=== PATIENT | female | born 1965 | race Caucasian/White ===

== ENCOUNTER → 2019-10-12 | Outpatient (CLI) | payer OTHER | LOC: MC.RAD 09:28 | DX: Z12.31 Encounter for screening mammogram for malignant neoplasm of breast (principal) ==

== ENCOUNTER → 2019-11-10 | Outpatient (CLI) | payer OTHER ==
[~2019-11-10] VITALS: Ht 165.1 cm; Wt 160.1 kg
[~2019-11-10] MED LIST: ASPIRIN E.C. 8181 MG PO; CRESTOR20 MG PO; FINACEA15% TP; ZESTRIL 20MG TA20 MG PO
[2019-11-10 09:26] VITALS: BP 130/64; PULSE 96
== END ==
LOC: LIGHT 09:06
DX: Z68.43 Body mass index [BMI] 50.0-59.9, adult (principal); E88.81 Metabolic syndrome and other insulin resistance; R73.01 Impaired fasting glucose; I10 Essential (primary) hypertension
CPT/HCPCS: G0463

== ENCOUNTER → 2020-03-15 | Outpatient (CLI) | payer OTHER | LOC: BHSO 14:58 → LIGHT 14:58 | DX: E66.8 Other obesity (principal) ==

== ENCOUNTER 2021-09-19 14:15 | Outpatient (RCR) | payer OTHER | END 2021-09-28 | disposition home or self-care (01) | LOC: WSPT | DX: M17.0 Bilateral primary osteoarthritis of knee (principal) ==

== ENCOUNTER 2021-12-06 09:01 | Inpatient (IN) | payer OTHER ==
[~2021-12-06] VITALS: Ht 167.6 cm; Wt 153.6 kg
[2022-01-02] VITALS (14 sets, daily range): BP systolic 140–168; BP diastolic 66–90; PULSE 92–113; TEMP 97.4–98.8
[2022-01-02] MEDS ORDERED: ASPIRIN 32325 MG/TAB PO (05:54)
[2022-01-02] MEDS ORDERED: BIOTIN5000 MCG PO (05:55)
[2022-01-02] MEDS ORDERED: COMPLETE MULTI1 TAB PO (05:56)
--- NOTE | 2022-01-02 06:30 | NUR ---
The patient ambulated back to [facility] independently using a steady gait and appeared to tolerate the activity well. Vital signs obtained. Consent signed. 18G IV started in right hand with one stick, LR infusing without difficulty. Assessment completed. Warm blanket provided. Daughter brought back to be at her bedside. Call light is within reach. The patient denies any further needs.
--- NOTE | 2022-01-02 12:15 | NUR ---
Patient received post op. She is slightly drowsy. Some pain and nausea. Corporate Travel Manager set up and reviewed usage with patient. Repositioned pain in bed for comfort. TIM drain to compression. Lap site with bandaids intact. Hui to DD. [facility] supportive [facility]. Will monitor.
--- NOTE | 2022-01-02 16:34 | NUR ---
Patient up and ambulated halls, one assist with nurse & daughter at her side. She did very well. Steady on her feet. Slight increase in nausea with movement. Denies the need for medication. Did check with patient able to have gum or a cough drop. Otherwise she remains NPO. Collections Officer dilaudid manages pain with minimal use. Scds ble. Ivf per orders. Nicholas drain to Compression. Lap site with bandaids. Will monitor.
--- NOTE | 2022-01-02 19:16 | NUR ---
RECEIVED CHANGE OF SHIFT REPORT FROM DAY SHIFT RN.
--- NOTE | 2022-01-02 19:24 | NUR ---
Patient resting in bed. Her supportive daughter remains at bedside. Patient pain manged with dialudid Foreign Student Adviser. Hui to DD with adeuqate output. Nicholas drain remains to compression. Report to night nurse. They deny questions and concerns
[2022-01-03] VITALS (10 sets, daily range): BP systolic 141–156; BP diastolic 68–84; PULSE 84–108; TEMP 97.6–98.8
[2022-01-03 05:59] LABS: BASO % 0.2 % (0.0-2.0); EOS % 0.3 % (0.0-4.0); GRAN # 8.4 K/mm3 (1.4-6.5); GRAN % 71.9 % (42.2-75.2); HEMOGLOBIN 11.7 g/dl (12.5-16.0); LYMPH # 2.1 K/mm3 (1.2-3.4); LYMPH % 17.7 % (20.0-51.0); MEAN CELL VOLUME 87 fl (80.0-100.0); MEAN CORPUSCULAR HEMOGLOBIN 29 pg (27-31); MEAN CORPUSCULAR HGB CONC 33 g/dl (33.0-37.0); MEAN PLATELET VOLUME 9.5 fl (7.4-10.4); MONO # 1.1 K/mm3 (0.1-0.6); MONO % 9.4 % (1.7-9.3); PLATELET COUNT 311 K/mm3 (130-400); RED BLOOD COUNT 4.07 M/mm3 (4.10-5.30); REDCELL DISTRIBUTION WIDTH-CV 13.4 % (11.5-14.5)
[2022-01-03 06:05] LABS: HEMATOCRIT 35.5 % (37.0-47.0)
[2022-01-03 06:18] LABS: ALBUMIN 3.5 gm/dL (3.5-5.0); BILIRUBIN,TOTAL 0.4 mg/dL (0.2-1.2); CALCIUM 8.4 mg/dL (8.4-10.2); CREATININE, serum 0.72 mg/dL (0.57-1.11); POTASSIUM 4.3 mmol/L (3.5-4.5); TOTAL PROTEIN 6.8 gm/dL (6.2-8.1)
--- NOTE | 2022-01-03 07:13 | NUR ---
CHANGE OF SHIFT REPORT GIVEN TO DAY SHIFT RNEMBER
--- NOTE | 2022-01-03 09:24 | NUR ---
PT IS BACK TO ROOM FROM [facility], STATES THAT IT WENT WELL. METAL FURNACE OPERATOR IN PLACE ET IVF INFUSING. DAUGHTER IS @ BEDSIDE.
--- NOTE | 2022-01-03 09:31 | NUR ---
Initial visit attempt; Patient not in room. Agency Development Manager left card for patient letting her know of the availability of spiritual care at our hospital and offering God's blessings.
--- NOTE | 2022-01-03 10:16 | NUR ---
Lead Java Software Engineer met with patient to discuss discharge planning. Patient's daughter is at bedside. Patient lives in [place] with her , Slava (ph#[phone]) and sees Dr. Power Steward for primary care. Patient obtains medications from [facility] in [employer] with no difficulties and does not use any DME. Patient is independent with ADLS and plans to return home at time of discharge. Patient does not have Advance Directives and is not interested in completing DPOA-HC form at this time. Discharge Plan: Home
--- NOTE | 2022-01-03 12:36 | NUR ---
PT IS WALKING IN HALLS, REPORTS BELCHING FREQUENTLY ET SOME NAUSEA. BOATBUILDER WOOD IN PLACE, IVF INFUSING. TIM DRAIN ON BULB SUCTION.
--- NOTE | 2022-01-03 15:18 | NUR ---
PT WAS STARTED ON CLEAR LIQUIDS @ 1015, HAS TOLERATED WELL. PT HAS MILD NAUSEA THAT RESOLVES WITH ZOFRAN. IVF DECREASED FROM 125 TO 75 ML/HR.
[2022-01-03] MEDS ORDERED: ZOFRAN 4MG T4 MG/TAB PO (17:09)
[2022-01-03] MEDS ORDERED: PRILOSEC 20MG20 MG PO (17:10)
[2022-01-03] MEDS ORDERED: NORCO 325 MG-51 TAB PO (17:10)
--- NOTE | 2022-01-03 18:23 | NUR ---
PT SITTING IN RECLINER CHAIR, FAMILY IS @ BEDSIDE. PT HAS BEEN UP TO AMBULATE IN [place] ET ROOM SEVERAL TIMES TODAY. PT STATES THAT SHE HAS MINIMAL PAIN ET OCCASIONAL NAUSEA. MESSINA CATHETER ET SLIPCOVER CUTTER HAS DCED. PT HAS NOT YET VOIDED, HAS BEEN INSTRUCTED TO LET STAFF KNOW WHEN SHE DOES. IVF INFUSING. CALL LIGHT WITHIN REACH.
--- NOTE | 2022-01-03 19:00 | NUR ---
RECEIVED CHANGE OF SHIFT REPORT FROM DAY SHIFT RN.
--- NOTE | 2022-01-03 20:41 | NUR ---
C/O NAUSEA, MED GIVEN, SEE MAR. DENIES ANY OTHER NEEDS AT THIS TIME.
--- NOTE | 2022-01-03 23:30 | NUR ---
PATIENT REPORTS NAUSEA STILL ONGOING WITH SIPS OF CLEAR LIQUIDS, CALLED DR SALAZAR (HISTOLOGY TECHNICIAN PROVIDER) REGARDING PATIENT'S CONTINUED NAUSEA, ORDER GIVEN FOR PHENERGAN IV 12.5 MG EVERY 6 HR PRN NAUSEA.
[2022-01-04 00:21] VITALS: BP 121/46; PULSE 106; TEMP 98
[2022-01-04 03:48] VITALS: BP 113/43; PULSE 96; TEMP 98.5
--- NOTE | 2022-01-04 07:02 | NUR ---
CHANGE OF SHIFT REPORT GIVEN TO DAY SHIFT RNEMBER.
[2022-01-04 07:54] VITALS: BP 114/65; PULSE 102; TEMP 98.6
[2022-01-04 11:59] VITALS: BP 112/70; PULSE 96; TEMP 97.9
--- NOTE | 2022-01-04 13:49 | NUR ---
PT HAS DONE WELL THROUGHOUT DAY. REPORTS MINIMAL PAIN, PASSING GAS, ET IS HAVING LOOSE LIQUID BROWN STOOLS. PT DID HAVE SOME MILD NAUSEA THIS MORNING THAT SHE STATES HAS RESOLVED SOME. PT HAS BEEN DRINKING WATER ET GATORADE, WALKING IN HALLS MULTIPLE TIMES. DRAIN IN PLACE TO LEFT ABDOMEN WITH SEROSANGUINEOUS OUTPUT.
[2022-01-04 16:03] VITALS: BP 139/69; PULSE 100; TEMP 98
--- NOTE | 2022-01-04 17:50 | NUR ---
PT IS DISCHARGED TO HOME WITH FAMILY, ACCOMPANIED DOWNSTAIRS VIA WC WITH AAMIR CLEMENTS. TIM DRAIN ET IV IS REMOVED. PT IS GIVEN INSTRUCTIONS ON WOUND CARE ET DISCHARGE EDUCATION, DEMONSTRATES UNDERSTANDING.
== END 2022-01-04 17:50 | disposition home or self-care (01) | DRG 621 ==
LOC: INPTSU 01-02 05:23 → SURG 01-02 05:23
PROVIDERS: ADMIT Surgery
PROC: 8E0W4CZ Robotic Assisted Procedure of Trunk Region, Percutaneous Endoscopic Approach (ICD-10-PCS; 2022-01-02)
PROC: 0D164ZA Bypass Stomach to Jejunum, Percutaneous Endoscopic Approach (ICD-10-PCS; principal; 2022-01-02 07:30)
DX: E66.01 Morbid (severe) obesity due to excess calories (principal); Z68.43 Body mass index [BMI] 50.0-59.9, adult; I10 Essential (primary) hypertension; E78.5 Hyperlipidemia, unspecified; M17.0 Bilateral primary osteoarthritis of knee; G47.33 Obstructive sleep apnea (adult) (pediatric); R32 Unspecified urinary incontinence; Z79.82 Long term (current) use of aspirin; Z23 Encounter for immunization
CPT/HCPCS: A4314; A9284; C9113; J0690; J1100; J1170; J1650; J1885; J1956; J2405; J2550; J2704; J3010; J3480; J7120

== ENCOUNTER → 2022-05-30 | Outpatient (CLI) | payer OTHER ==
[~2022-05-30] MED LIST changes: +ASPIRIN 32325 MG/TAB PO; +BIOTIN5000 MCG PO; +COMPLETE MULTI1 TAB PO; +NORCO 325 MG-51 TAB PO; +PRILOSEC 20MG20 MG PO; +ZOFRAN 4MG T4 MG/TAB PO
== END ==
LOC: MC.RAD 10:16
DX: Z12.31 Encounter for screening mammogram for malignant neoplasm of breast (principal)

== ENCOUNTER → 2023-10-07 | Outpatient (CLI) | payer OTHER | LOC: MC.RAD 10:22 | DX: Z12.31 Encounter for screening mammogram for malignant neoplasm of breast (principal) ==